=== PATIENT | male | born 1970 | race Caucasian/White ===

== ENCOUNTER 2023-08-12 10:25 | Emergency (ER) | payer BC, SELFPAY ==
[2023-08-12] VITALS (15 sets, daily range): BP systolic 135; BP diastolic 81; PULSE 60–76; RESP 12–21; TEMP 36.5; O2SAT 94–98; BMI 27.6
--- NOTE | 2023-08-12 10:43 | ECG_ITS ---
[facility] Test Date: 2023-08-12 Pat Name: SHA RAYGOZA Department: Room: - Gender: Male [employer]ter: : 1970 Requested By: [id number] Order Number: [id number] Reading MD: MARTÍN ROMAN Measurements Intervals Bent Rate: 72 P: 64 AR: 136 QRS: 68 QRSD: 94 T: 71 QT: 386 QTc: 410 Interpretive Statements 1100 Sinus rhythm 1102 Sinus arrhythmia 9110 normal ECG No previous ECG available for comparison Electronically Signed On 08-13-2023 7:45:53 EST by MARTÍN ROMAN
--- NOTE | 2023-08-12 10:47 | XR_ITS ---
The [address] [address] Patient Name: SHA RAYGOZA MRN: [id number] date: 1970 Sex: M Assigned Patient Location: ER Current Patient Location: ER Accession/Order Number: [id number] Exam Date: 08/12/2023 11:08 Report Date: 08/12/2023 11:21 At the request of: SHARA CAVAZOS Procedure: XR chest 2V EXAM: XR chest 2V CLINICAL INDICATION: cp COMPARISON: None TECHNIQUE: 2 views of chest performed. FINDINGS: Lungs: No convincing focal infiltrates. No pleural effusion or pneumothorax. Heart: Cardiac and mediastinal contours are unremarkable. No overt pulmonary vascular congestion. Osseous structures: No acute abnormalities. XR/XR chest 2V IMPRESSION: No acute cardiopulmonary process. Electronically authenticated by: FERNANDO RICO Date: 08/12/2023 11:21
--- NOTE | 2023-08-12 10:57 | ED.GENADUL1 ---
HPI - General Adult General Chief complaint: Chest Pain Time Seen by Provider: 08/12/23 10:47 Source: patient History of Present Illness HPI narrative: Patient is a 53-year-old male who is presenting with intermittent numbness and tingling to the left side of his neck and left jaw and left upper chest for the last 1 to 2 weeks. Patient also for the past 3 to 4 days has been having left lower buttock pain with radiation down the left lateral aspect of his leg down into his left pinky toe. Patient has no history of sciatica. Patient has no cardiac history. Patient has no saddle anesthesia, no cauda equina. He has no chest pain or tightness. No shortness of breath. Patient never had a stress test or echocardiogram. Patient is currently not working, he works with [email or web address]. Patient is concerned about some type of heart blockage. Patient has no lower back pain, more left buttock pain with radiation of the left lateral thigh, leg, to his left 5th toe. No acute complaints. All systems are negative except as noted/marked. All systems reviewed and otherwise negative. Nurses note and vital signs reviewed and patient is not hypoxic. General: The patient appears well and in no apparent distress. Patient is resting comfortably on cart. Patient is not toxic, lethargic, or listless Skin: Warm, dry, no pallor noted. There is no rash noted. No petechiae, purpura. Head: Normocephalic, atraumatic; no carotid bruits bilateral. No midline or paracervical tenderness to palpation. Full range of motion of Cervical spinal no difficulty. No meningeal signs or symptoms. Eye: Normal conjunctiva, no drainage, EOMI. PERRL Ears, Nose, Mouth, and Throat: oral mucosa is moist. Nares patent. Mouth without vesicles. Cardiovascular: Regular Rate and Rhythm, no murmur, gallop, rub. No reproducible tenderness to palpation to the anterior, lateral, posterior chest. No reproducible tenderness to palpation to anterior, lateral, posterior chest wall. Respiratory: Patient is in no distress, no accessory muscle use, lungs are clear to auscultation, no wheezing, rales or rhonchi Back: non-tender, no CVA tenderness bilaterally to percussion. No CT LS midline pain. No midline or paralumbar or parasacral tenderness to palpation. GI: no tenderness to palpation, no masses appreciated. No rebound, guarding, or rigidity noted. No distention Musculoskeletal: Patient has full range of motion of all of the extremities, no motor, sensory, or focal neurological deficits. No saddle anesthesia or cauda equina.Patient has negative straight leg raising test bilateral. Moderate tenderness to palpation to left piriformis muscle. Neurological: A&O x4, normal speech Psychiatric: Cooperative Related Data Home Medications Medication Instructions Recorded Confirmed glimepiride 2 mg tablet 2 mg PO BID 08/12/23 08/12/23 lisinopril 30 mg tablet 30 mg PO DAILY 08/12/23 08/12/23 rosuvastatin 40 mg tablet 40 mg PO DAILY 08/12/23 08/12/23 Allergies Allergy/AdvReac Type Severity Reaction Status Date / Time No Known Drug Allergies Allergy Verified 08/12/23 10:29 [facility] Medical History (Updated 08/12/23 @ 12:51 by Jorge Romero MD) Diabetes ?E11.9 - Type 2 diabetes mellitus without complications (ICD-10) High cholesterol ?E78.00 - Pure hypercholesterolemia, unspecified (ICD-10) Hypertension ?I10 - Essential (primary) hypertension (ICD-10) Social History Smoking status: Current every day smoker Exam Constitutional Vital Signs, click to edit/add: Last Vital Signs Temp 97.7 F 08/12/23 10:29 Pulse 71 08/12/23 12:40 Resp 16 08/12/23 12:40 BP 135/81 08/12/23 10:29 Pulse Ox 96 08/12/23 12:40 Course Vital Signs Vital signs: Vital Signs Temperature 97.7 F 08/12/23 10:29 Pulse Rate 76 08/12/23 10:29 Respiratory Rate 18 08/12/23 10:29 Blood Pressure 135/81 08/12/23 10:29 Pulse Oximetry 95 08/12/23 10:29 Temperature 97.7 F 08/12/23 10:29 Pulse Rate 71 08/12/23 12:40 Respiratory Rate 16 08/12/23 12:40 Blood Pressure 135/81 08/12/23 10:29 Pulse Oximetry 96 08/12/23 12:40 Medical Decision Making [facility] Narrative Medical decision making narrative: Patient chest x-ray, EKG, laboratory showed no acute findings. I don't have an exact etiology for paresthesia to the left upper trapezius, neck or jaw. Patient has no chest pain or tightness, patient's been having symptoms for 2 weeks. Patient's also been having sciatica symptoms for 3-4 days. Education on ice, stretching, and piriformis syndrome and sciatica were done at bedside and on discharge paperwork. Patient has appointment on Tuesday in 3 days with his PCP. Education on stress test and echocardiogram was done at bedside. Patient will see his PCP on Tuesday, return if any chest heaviness, shortness of breath, nausea, vomiting, or any other acute complaints. Patient has risk factors of age, diabetes, cholesterol, education cardiovascular disease was done at bedside. Lab Data Lab results reviewed: Yes I reviewed the patient's lab results Labs: Lab Results 08/12/23 08/12/23 Range/Units 10:50 11:49 WBC 8.5 (4.0-11.0) 10^3/uL RBC 4.50 L (4.70-6.10) 10^6/uL Hgb 13.8 L (14.0-18.0) g/dL Hct 41.2 L (42.0-54.0) % MCV 91.6 (80.0-94.0) fL MCH 30.7 (25.9-34.0) pg MCHC 33.5 (29.9-35.2) g/dL RDW 13.4 (11.0-15.0) % Plt Count 191 (150-450) 10^3/uL MPV 12.6 (9.5-13.5) fL Neut % (Auto) 62.6 (43.0-75.0) % Lymph % (Auto) 27.7 (20.5-60.0) % Crockett % (Auto) 6.8 (1.7-12.0) % Eos % (Auto) 2.2 (0.9-7.0) % Baso % (Auto) 0.5 (0.2-2.0) % Neut # (Auto) 5.3 (1.4-6.5) 10^3/uL Lymph # (Auto) 2.4 (1.2-3.8) 10^3/uL Crockett # (Auto) 0.6 (0.3-0.8) 10^3/uL Eos # (Auto) 0.2 (0.0-0.7) 10^3/uL Baso # (Auto) 0.0 (0.0-0.1) 10^3/uL Abs Immat Gran (auto) 0.02 (0.00-0.03) 10^3/uL Imm/Tot Granulo (auto) 0.2 (0.0-0.5) % Sodium 135 L (136-145) mmol/L Potassium 5.1 (3.5-5.1) mmol/L Chloride 99 (98-107) mmol/L Carbon Dioxide 25.8 (21.0-32.0) mmol/L Anion Gap 15.3 BUN 18.0 (7.0-18.0) mg/dL Creatinine 1.15 (0.70-1.30) mg/dL Est GFR ( Amer) >60 (>=60) Est GFR (Non-Af Amer) >60 (>=60) BUN/Creatinine Ratio 15.7 Glucose 198 H (74-106) mg/dL Calcium 9.3 (8.5-10.1) mg/dL Total Bilirubin 0.3 (0.2-1.0) mg/dL AST 31 (15-37) U/L ALT 52 (16-63) U/L Alkaline Phosphatase 72 (46-116) U/L Troponin I High Sens 4.4 (4.0-76.1) pg/mL NT-Pro-B Natriuret Pep 18.0 (<=900.0) pg/mL Total Protein 7.8 (6.4-8.2) g/dL Albumin 4.1 (3.4-5.0) g/dL Globulin 3.7 g/dL Albumin/Globulin Ratio 1.1 Lipase 41.0 (16.0-77.0) U/L ECG Data Attestation: I personally reviewed and interpreted this ECG as follows: (EKG interpretation. Normal sinus rhythm at 72 beats a minute. Normal axis deviation. No acute ST elevation, no acute ectopy. QTc of 410) Discharge Plan Discharge Chief Complaint: Chest Pain Clinical Impression: Piriformis syndrome of left side, Paresthesia, Acute left-sided back pain with sciatica Patient Disposition: Home, Self-Care Time of Disposition Decision: 12:49 Condition: Fair Prescriptions / Home Meds: No Action glimepiride 2 mg tablet 2 mg PO BID lisinopril 30 mg tablet 30 mg PO DAILY rosuvastatin 40 mg tablet 40 mg PO DAILY Instructions: Sciatica (ED), Paresthesia (ED), Piriformis Syndrome (ED), Lower Back Exercises (ED) Additional Instructions: Ice 20 minutes on, 20 minutes off. Do not use heat. Sciatica stretching exercises and piriformis stretching exercises were discussed at bedside and on discharge paperwork. Follow-up with your PCP on Tuesday and have additional outpatient stress test or echocardiogram done as indicated Referrals: Physician,Non-Staff, MD [Primary Care Provider] - 1 week Discharge Date/Time: 08/12/23 12:55 Stand Alone Forms: Portal Instructions
[2023-08-12 11:01] LABS: Basophils Percent Auto 0.5 % (0.2-2.0); Eosinophils Absolute Auto 0.2 10^3/uL (0.0-0.7); Eosinophils Percent Auto 2.2 % (0.9-7.0); Hematocrit 41.2 % (42.0-54.0); Hemoglobin 13.8 g/dL (14.0-18.0); Immature Granulocytes Abs Auto 0.02 10^3/uL (0.00-0.03); Immature Granulocytes Pct Auto 0.2 % (0.0-0.5); Lymphocytes Absolute Auto 2.4 10^3/uL (1.2-3.8); Lymphocytes Percent Auto 27.7 % (20.5-60.0); Mean Corpuscular HGB Conc 33.5 g/dL (29.9-35.2); Mean Corpuscular Hemoglobin 30.7 pg (25.9-34.0); Mean Corpuscular Volume 91.6 fL (80.0-94.0); Mean Platelet Volume 12.6 fL (9.5-13.5); Monocytes Absolute Auto 0.6 10^3/uL (0.3-0.8); Monocytes Percent Auto 6.8 % (1.7-12.0); Neutrophils Absolute Auto 5.3 10^3/uL (1.4-6.5); Neutrophils Percent Auto 62.6 % (43.0-75.0); Platelet Count 191 10^3/uL (150-450); Red Cell Distribution Width 13.4 % (11.0-15.0); White Blood Count 8.5 10^3/uL (4.0-11.0)
[2023-08-12] MEDS: ASPIRIN 81 MG TAB.CHEW 162 MG PO (11:13)
[2023-08-12 12:19] LABS: Alanine Aminotransferase 52 U/L (16-63); Albumin Globulin Ratio 1.1; Albumin Level 4.1 g/dL (3.4-5.0); Alkaline Phosphatase 72 U/L (46-116); Anion Gap 15.3; Aspartate Amino Transferase 31 U/L (15-37); BUN Creatinine Ratio 15.7; Bilirubin Total 0.3 mg/dL (0.2-1.0); Calcium 9.3 mg/dL (8.5-10.1); Carbon Dioxide 25.8 mmol/L (21.0-32.0); Chloride 99 mmol/L (98-107); Estimated GFR (African America >60 (>=60); Estimated GFR (Non-African Ame >60 (>=60); Globulin 3.7 g/dL; Glucose 198 mg/dL (74-106); Potassium 5.1 mmol/L (3.5-5.1); Sodium 135 mmol/L (136-145); Total Protein 7.8 g/dL (6.4-8.2); Troponin I High Sensitivity 4.4 pg/mL (4.0-76.1)
== END 2023-08-12 12:55 | disposition home or self-care (01) ==
PROVIDERS: Emergency Provider Emergency Medicine
DX: G57.02 Lesion of sciatic nerve, left lower limb (principal); R20.2 Paresthesia of skin; M54.42 Lumbago with sciatica, left side; E11.9 Type 2 diabetes mellitus without complications; E78.00 Pure hypercholesterolemia, unspecified; I10 Essential (primary) hypertension; Z79.899 Other long term (current) drug therapy
CPT/HCPCS: 36415; 71046; 80053; 83690; 83880; 84484; 85025; 93005; 99285